=== PATIENT | male | born 1995 | race African-American/Black ===

== ENCOUNTER 2019-02-18 11:28 | Emergency (ER) | payer SELFPAY ==
--- NOTE | 2019-02-18 11:54 | EDM.PDOC ---
ED HPI GENERAL MEDICAL PROBLEM - General Chief Complaint: Chest Pain Stated Complaint: PAIN IN STERNUM AREA & SWELLING DUE TO FOOTBALL Time Seen by Provider: 02/18/19 11:46 Source of Information: Reports: Patient History Limitations: Reports: No Limitations - History of Present Illness INITIAL COMMENTS - FREE TEXT/NARRATIVE: 23-year-old male who was playing football on Friday and dove into the end zone landing on his chest. He had pain in his upper chest that radiated through to his right upper back and shoulder area. He has continued to have pain in this area since Friday but it has improved. He also feels that he is short of breath in that he can't take a deep breath secondary to the pain and that makes him feel short of breath. He has had no hemoptysis. He has had no nausea or vomiting. He's had no abdominal pain. Apparently, yesterday he started back to practice and he was struck in his chest by another player and that increased the level of pain and feelings of shortness of breath that he was having. He rates the pain as a 7/10. It is a sharp pain. It is worse with breathing, movement and palpation. He also feels short of breath because of the pain. He continues to have no nausea or vomiting or hemoptysis there are no other associated signs or symptoms. There are no other modifying factors. 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 ED ROS GENERAL - Review of Systems Review Of Systems: See Below Constitutional: Reports: No Symptoms HEENT: Reports: No Symptoms Respiratory: Reports: Shortness of Breath Cardiovascular: Reports: Chest Pain (As above) Endocrine: Reports: No Symptoms GI/Abdominal: Reports: No Symptoms : Reports: No Symptoms Musculoskeletal: Reports: Shoulder Pain (Right posterior shoulder), Back Pain ( Right upper back) Skin: Reports: No Symptoms Neurological: Reports: No Symptoms Hematologic/Lymphatic: Reports: No Symptoms Immunologic: Reports: No Symptoms ED EXAM, GENERAL - Physical Exam Exam: See Below General Appearance: Alert, WD/WN, Mild Distress Eye Exam: Bilateral Eye: EOMI, Normal Inspection, PERRL Ears: Normal External Exam, Hearing Grossly Normal Ear Exam: Bilateral Ear: Auricle Normal Nose: Normal Inspection, Normal Mucosa, No Blood Throat/Mouth: Normal Inspection, Normal Lips, Normal Oropharynx, Normal Voice, No Airway Compromise Head: Atraumatic, Normocephalic Neck: Normal Inspection, Supple, Non-Tender, Full Range of Motion Respiratory/Chest: No Respiratory Distress, Lungs Clear, Normal Breath Sounds, No Accessory Muscle Use, Other (Tender over right superior costochondral junction. No crepitus or bony deformity noted.) Cardiovascular: Normal Peripheral Pulses, Regular Rate, Rhythm, No Murmur Peripheral Pulses: 2+: Radial (L), Radial (R) GI/Abdominal: Normal Bowel Sounds, Soft, Non-Tender, No Mass Back Exam: Normal Inspection, Full Range of Motion Extremities: Normal Inspection, Normal Range of Motion, Non-Tender, No Pedal Edema, Normal Capillary Refill Neurological: Alert, Oriented, CN II-XII Intact, Normal Cognition, No Motor/ Sensory Deficits Psychiatric: Anxious Skin Exam: Warm, Dry, Intact, Normal Color, No Rash EKG INTERPRETATION EKG Date: 02/18/19 Time: 11:36 Rhythm: NSR [place]: Normal P-Wave: Present QRS: Normal ST-T: Normal QT: Normal Comparison: NA - No Prior EKG EKG Interpretation Comments: It was a normal EKG. Course - Vital Signs Last Recorded V/S: Last Vital Signs Temp 36.3 C 02/18/19 11:40 Pulse 73 02/18/19 12:53 Resp 16 02/18/19 12:53 BP 141/66 H 02/18/19 13:52 Pulse Ox 97 02/18/19 12:53 - Radiology Interpretation Free Text/Narrative:: Chest x-ray PA and lateral shows no pneumothorax and no definite fracture per the radiologist. Sternal x-ray show no definite fracture per the radiologist. CT scan of chest showed area on the inferior aspect to the left of the manubrium could represent a fracture or developmental anomaly per the radiologist. There was no other concern for fracture. The patient has no pain with palpation on this side of his chest. All of his symptoms are on the right superior parasternal chest. - Re-Assessments/Exams Free Text/Narrative Re-Assessment/Exam: 02/18/19 12:55: I discussed the x-rays with the radiologist and he did not see any definite fracture but felt that if there was some concern about fracture, then CT scan of the chest without contrast would be appropriate. 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 I discussed this with the patient and he is in agreement with the plans for proceeding with CT scan of his chest. 02/18/19 15:00: CT scan of the patient's chest showed no definite fracture in the area of the patient's symptoms. I suspect that he has contusion and strain of the costochondral area on the right superior chest. I am going to restrict him forward no football for the next week. 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 He should continue to take Tylenol and ibuprofen as needed for pain. Departure - Departure Time of Disposition: 15:20 Disposition: Home, Self-Care 01 Condition: Good Clinical Impression: Contusion of right chest wall Qualifiers: Encounter type: initial encounter Qualified Code(s): S20.211A - Contusion of right front wall of thorax, initial encounter Costochondral joint sprain Qualifiers: Encounter type: initial encounter Qualified Code(s): S23.41XA - Sprain of ribs , initial encounter - Discharge Information Instructions: Chest Contusion, Adult, [id number] Referrals: PCP,None [Primary Care Provider] - Forms: ED Department Discharge, ED Return to Work/School Form Additional Instructions: The CT scan of your chest showed no definite fracture in the area that you are having pain. As we discussed, you do have an area on the left side of your upper sternum that is probably a developmental anomaly and does not represent a fracture. I suspect that your problem is a strain or partial tearing of the cartilage next your ribs to your sternum in your upper right chest. No sports or strenuous activity for the next week and you should work with your ultimate hoops trainer after this to reinstitute activity with sports. Continue to take ibuprofen and Tylenol as needed for pain. Activity as tolerated otherwise. Back to the emergency department for coughing up blood, worse breathing or any other concerning sign or symptom.
--- NOTE | 2019-02-18 13:51 | CR ---
INDICATION: Trauma to chest with pain. CHEST: PA and lateral views of the chest revealed the heart, mediastinum, and bony thorax to be unremarkable. A BB is overlying the site of injury, which is at the level of the aortic arch in the midline. An active infiltrate, effusion , contusion, pneumothorax, or pneumomediastinum were not suggested. IMPRESSION: No active disease. Report was called to Dr. Nelson at approximately 1245 hours. [facility]
--- NOTE | 2019-02-18 13:54 | CR ---
INDICATION: Trauma to chest with pain. STERNUM: Six images of the sternum were obtained 02/18/19 and revealed inability to exclude a slightly oblique irregular fracture through the lower portion of the manubrium. CT examination would be confirmatory, as felt to be clinically necessary. No other finding to suggest a fracture site or dislocation is seen. Report was called to Dr. Nelson at approximately 1245 hours. [facility]
--- NOTE | 2019-02-18 14:15 | CT ---
INDICATION: Trauma to upper chest anteriorly, question fracture of manubrium. CT CHEST WITHOUT CONTRAST: Spiral 3.75 mm axial sections were obtained through the chest without contrast with sagittal and coronal reconstructions, 02/18/19 - no comparisons. Total exam DLP = 452.87 mGy-cm. An active infiltrate, effusion, contusion, pneumothorax, or pneumomediastinum were not identified. The heart appeared normal in size. No pericardial effusion was seen. Bony structures appear to be intact, except for question of a tiny avulsion chip fracture fragment off the inferior aspect of the manubrium at the manubriosternal junction slightly to the left of midline. This could represent a developmental process also - correlate clinically. No organomegaly, mass lesions, or free fluid collections were identified in the chest. No mediastinal masses were identified. IMPRESSION: Cannot entirely exclude a tiny chip fracture fragment off the manubrium, as noted above - correlate clinically. Report was called to Dr. Nelson at 1335 hours on 02/18/19. [facility]
== END 2019-02-18 15:32 | disposition home or self-care (01) ==
LOC: FB.ED 11:28
DX: S23.41XA Sprain of ribs, initial encounter (principal); W50.0XXA Accidental hit or strike by another person, initial encounter; Y93.61 Activity, american tackle football
CPT/HCPCS: 71046; 71120; 71250; 93005; 99284-25